=== PATIENT | female | born 1990 | race Caucasian/White ===

== ENCOUNTER 2019-05-25 15:25 | Emergency (ER) | payer BC ==
[~2019-05-25] VITALS: Ht 167.6 cm; Wt 68.0 kg
[2019-05-25 15:47] LABS: URINE BILIRUBIN NEGATIVE (Negative); URINE BLOOD 2+ (Negative); URINE CLARITY CLEAR; URINE COLOR YELLOW; URINE GLUCOSE-RANDOM NEGATIVE (Negative); URINE KETONES NEGATIVE (Negative); URINE LEUKOCYTES-REFLEX NEGATIVE (Negative); URINE NITRITE-REFLEX NEGATIVE (Negative); URINE PROTEIN NEGATIVE (Negative); URINE SPECIFIC GRAVITY 1.015 (1.005-1.030); URINE UROBILINOGEN 0.2 E.U./dl (0.2-1.0)
[2019-05-25 15:50] LABS: ABSOLUTE BASOPHILS 0.1 thou/uL (0.0-0.2); ABSOLUTE EOSINOPHILS 0.2 thou/uL (0.0-0.7); ABSOLUTE LYMPHOCYTES 2.1 thou/uL (0.8-5.3); ABSOLUTE MONOCYTES 0.8 thou/uL (0.0-1.2); ABSOLUTE NEUTROPHILS 4.3 thou/uL (1.6-8.1); BASOPHILS 1.1 %; EOSINOPHILS 2.8 %; HEMATOCRIT 42.5 % (37.0-47.0); HEMOGLOBIN 14.6 gm/dL (12.0-15.0); LYMPHOCYTES 27.7 %; MCH 30.3 pg (26.0-34.0); MCHC 34.3 g/dL (28.0-37.0); MCV 88.3 fL (80.0-100.0); MONOCYTES 10.6 %; MPV 7.9 fl. (7.2-11.1); NUCLEATED RBCS 0 /100WBC; PLATELET COUNT* 359 thou/uL (150-400); POLYS 57.8 %; RBC 4.81 mil/uL (4.20-5.00); RDW-CV 12.8 % (10.5-14.5); WBC 7.4 thou/uL (4.0-11.0)
[2019-05-25 15:56] LABS: AMP/METHAMP Negative (Negative); BARBITURATES Negative (Negative); BENZODIAZEPINES Negative (Negative); COCAINE Negative (Negative); METHADONE Negative (Negative); OPIATES Negative (Negative); PCP Negative (Negative); THC Negative (Negative)
[2019-05-25 15:59] LABS: CALCIUM 8.7 mg/dL (8.5-10.1); CREATININE 0.8 mg/dL (0.6-1.3); POTASSIUM 4.1 mmol/L (3.5-5.1)
[2019-05-25 16:00] LABS: BACTERIA-REFLEX 1-9 Few /HPF (None Seen); CASTS None Seen /LPF (None Seen); SQUAMOUS >10 Many /LPF (0-3); URINE RBC 0-2 Rare /HPF (0-2); URINE WBC-REFLEX 0-5 Rare /HPF (0-5)
[2019-05-25 16:01] LABS: CRYSTALS None Seen /LPF (None Seen)
[2019-05-25 16:04] LABS: ALBUMIN 4.1 g/dL (3.4-5.0); TOTAL BILIRUBIN 0.4 mg/dL (<0.1-1.0); TOTAL PROTEIN 7.9 g/dL (6.4-8.2)
[2019-05-25 17:03] VITALS: BP 113/65
--- NOTE | 2019-05-26 09:18 | EKG ---
[place] [address] ELECTROCARDIOGRAM REPORT Name: ESTHER HOPPER Room: [facility]#: [id number] Admission: 05/25/19 Attend Phys: Discharge: 05/25/19 Date of : 89 Date of Service: 05/25/19 1532 Report #: [id number] THIS REPORT FOR: //name// [facility] ED Test Date: 2019-05-25 Test Time: 15:32:30 Pat Name: ESTHER HOPPER Department: Room: Gender: Solution Lead: : 1990 Requested By: Kush Ruth Order Number: [id number] MD: Ahsan Guzman Measurements Intervals [place] Rate: 62 P: 43 NH: 131 QRS: 58 QRSD: 93 T: 53 QT: 394 QTc: 400 Interpretive Statements Sinus rhythm No previous ECG available for comparison Electronically Signed On 05-26-2019 9:16:53 [employer]PERVIS[employer] by Ahsan Guzman [email or web address] <ELECTRONICALLY SIGNED> By: Ahsan Guzman MD, [facility] 05/26/19 0916 1532 31 Ahsan Guzman MD, FACC /EPI
== END 2019-05-25 17:19 | disposition home or self-care (01) ==
LOC: M.ERS 15:25
PROVIDERS: Physician Assistant
DX: R42 Dizziness and giddiness (principal)